=== PATIENT | female | born 1955 | race Caucasian/White ===

== ENCOUNTER 2023-08-05 17:12 | Outpatient (CLI) | payer MEDICARE, OTHER, SELFPAY | END 2023-08-05 17:13 | disposition home or self-care (01) | LOC: AMB 08-23 02:41 | PROVIDERS: Visit Provider Family Medicine | DX: R22.0 Localized swelling, mass and lump, head (principal); T80.62XA Other serum reaction due to vaccination, initial encounter; T50.Z95A Adverse effect of other vaccines and biological substances, initial encounter; Y92.042 Bedroom in boarding-house as the place of occurrence of the external cause | CPT/HCPCS: A0425; A0428 ==